=== PATIENT | male | born 1965 | race African-American/Black ===

== ENCOUNTER 2020-04-03 09:55 | Day surgery (SDCO) | payer OTHER ==
[~2020-04-03 09:55] MED LIST: ASPIRIN CHEWABL81 MG PO; ASPIRIN325 MG PO; CEFDINIR300 MG PO; COZAAR 100MG T100 MG PO; COZAAR100 MG PO; DEMADEX20 MG PO; FAMCICLOVIR500 MG PO; GLUCOPHAGE850 MG PO; HYDROCODON-ACE1 EAC4 PO; KETOROLAC TROME10 MG PO; LANTUS **100 UNITS/ SC; LANTUS SOL100 UNIT/1 SC; LISINOPRIL-HCT1 EAC1 PO; MEDROL 4MG DOSEP4 MG PO; METOLAZONE 5MG T5 M1 PO; METOPROLOL SUCC50 MG PO; NEURONTIN300 MG PO; NORCO 5-325 TA1 EACH PO; NORVASC2.5 MG PO; NOVOLOG VI100 UNIT/1 SC; ONDANSETRON HCL4 MG PO; ONDANSETRON ODT4 MG SL; PAROXETINE 20MG20 MG PO; PAXIL10 MG PO; PRAVACHOL20 M1 PO; PREDNISONE 20MG20 MG PO; PROTONIX 40MG T40 MG PO; TRESIBA FL100 UNIT/1 SC; VENTOLIN HFA IN18 GM INH; VIBRAMYCIN100 MG PO; VOLTAREN **OUT50 MG PO; WELLBUTRIN75 MG PO
[2020-04-03 11:02] LABS: BILIRUBIN NEGATIVE (NEGATIVE); BLOOD 2+ Ery/uL (NEGATIVE); CLARITY CLEAR (CLEAR); COLOR YELLOW (YELLOW); GLUCOSE (U) NORMAL (NORMAL); LEUKOCYTES NEGATIVE Leu/uL (NEGATIVE); NITRITE NEGATIVE (NEGATIVE); PROTEIN 2+ mg/dL (NEGATIVE); UROBILINOGEN 0.2 mg/dL (0.2-1.0); pH 5.5 (5.0-9.0)
[2020-04-03 11:06] LABS: BASOPHIL 0.5 % (0-2); EOSINOPHIL 2.7 % (0-5); HCT 40.4 % (42.0-52.0); HGB 13.2 g/dl (13.2-18.0); LYMPHOCYTE 17.6 % (15-48); MCH 28.5 pg (25.0-31.0); MCHC 32.7 g/dL (32.0-36.0); MCV 87.3 fL (78.0-100.0); MONOCYTE 7.4 % (0-12); MPV 9.3 fL (6.0-9.5); NEUTROPHIL 70.6 % (41-80); NRBC 0; PLT 415 K/uL (150-400); RBC 4.63 M/uL (4.70-6.00); RDW 14.5 % (11.5-14.0); WBC 8.6 K/uL (4.0-10.5)
[2020-04-03 11:10] LABS: SQUAMOUS EPITHELIAL CELLS RARE
[2020-04-03 11:16] LABS: INR 1.01 (0.9-1.2); PROTHROMBIN TIME 12.6 SECONDS (11.4-13.6)
[2020-04-03 11:17] LABS: PTT 27.3 SECONDS (22.2-34.7)
[2020-04-03 11:37] LABS: BILIRUBIN - TOTAL 0.8 mg/dL (0.2-1.0); CREATININE 2.77 mg/dL (0.67-1.17); GLOBULIN (CALCULATION) 4.7 g/dL; POTASSIUM 3.6 mmol/L (3.5-5.1); TOTAL PROTEIN 7.7 g/dL (6.4-8.2)
[2020-04-03] MEDS ORDERED: BACTRIM DS TAB1 EACH PO (17:24)
[2020-04-03] MEDS ORDERED: TORSEMIDE20 MG PO (17:25)
[2020-04-03] MEDS ORDERED: ALLOPURINOL300 MG PO (17:27)
[2020-04-03] MEDS ORDERED: LANTUS **100 UNITS/ IM (17:28)
[2020-04-03] MEDS ORDERED: AMLODIPINE BESY10 MG PO (17:29)
[2020-04-03] MEDS ORDERED: COZAAR100 MG PO (17:29)
[2020-04-03] MEDS ORDERED: LOPRESSOR50 MG PO (17:30)
[2020-04-03] MEDS ORDERED: PROTONIX 40MG T40 MG PO (17:30)
[2020-04-03] MEDS ORDERED: NEURONTIN300 MG PO (17:31)
[2020-04-03] MEDS ORDERED: PAXIL20 MG PO (17:31)
[2020-04-04 06:25] LABS: BASOPHIL 0.1 % (0-2); EOSINOPHIL 0 % (0-5); HCT 37.3 % (42.0-52.0); HGB 12.1 g/dl (13.2-18.0); LYMPHOCYTE 10.8 % (15-48); MCH 28.7 pg (25.0-31.0); MCHC 32.4 g/dL (32.0-36.0); MCV 88.4 fL (78.0-100.0); MONOCYTE 3.3 % (0-12); MPV 9.3 fL (6.0-9.5); NEUTROPHIL 85.4 % (41-80); NRBC 0; PLT 388 K/uL (150-400); RBC 4.22 M/uL (4.70-6.00); RDW 14.3 % (11.5-14.0); WBC 6.8 K/uL (4.0-10.5)
[2020-04-04 06:54] LABS: BUN/CREAT RATIO (CALC) 14.3 RATIO; CREATININE 2.51 mg/dL (0.67-1.17); POTASSIUM 3.9 mmol/L (3.5-5.1); URIC ACID 9.5 mg/dL (3.5-7.2)
[2020-04-04] MEDS ORDERED: METOPROLOL SUCC50 MG PO (10:30)
[2020-04-04] MEDS ORDERED: AMLODIPINE BESY10 MG PO (10:30)
[2020-04-04] MEDS ORDERED: COZAAR 100MG T100 MG PO (10:34)
[2020-04-04] MEDS ORDERED: DEMADEX20 MG PO (10:34)
[2020-04-04] MEDS ORDERED: PREDNISONE 20MG20 MG PO (10:35)
[2020-04-04] MEDS ORDERED: COLCHICINE0.6 MG PO (10:35)
[2020-04-04] MEDS ORDERED: TORSEMIDE20 MG PO (10:37)
[2020-04-04] MEDS ORDERED: PERCOCET 5-3251 EACH PO (10:40)
== END 2020-04-04 11:11 | disposition home or self-care (01) ==
LOC: FER 09:55 → FMS 13:05
PROVIDERS: Emergency Medicine; ADMIT Internal Medicine
DX: M10.9 Gout, unspecified (principal); M79.89 Other specified soft tissue disorders; I13.0 Hypertensive heart and chronic kidney disease with heart failure and stage 1 through stage 4 chronic kidney disease, or unspecified chronic kidney disease; E11.22 Type 2 diabetes mellitus with diabetic chronic kidney disease; N18.4 Chronic kidney disease, stage 4 (severe); I50.30 Unspecified diastolic (congestive) heart failure; E11.40 Type 2 diabetes mellitus with diabetic neuropathy, unspecified; K21.9 Gastro-esophageal reflux disease without esophagitis; F41.9 Anxiety disorder, unspecified; Z87.891 Personal history of nicotine dependence; Z79.4 Long term (current) use of insulin; Z79.82 Long term (current) use of aspirin; Z79.899 Other long term (current) drug therapy
CPT/HCPCS: 36415; 71046; 80048; 80053; 81001; 83880; 84443; 84484; 84550; 85025; 85610; 85730; 93005; G0378; J1940; J7512

== ENCOUNTER 2020-05-28 06:14 | Inpatient (IN) | payer OTHER ==
[~2020-05-28 06:14] MED LIST changes: +ALLOPURINOL300 MG PO; +AMLODIPINE BESY10 MG PO; +BACTRIM DS TAB1 EACH PO; +COLCHICINE0.6 MG PO; +LANTUS **100 UNITS/ IM; +LOPRESSOR50 MG PO; +PAXIL20 MG PO; +PERCOCET 5-3251 EACH PO; +TORSEMIDE20 MG PO
[2020-05-28 06:52] LABS: BASOPHIL 0.4 % (0-2); EOSINOPHIL 1.1 % (0-5); HCT 33.8 % (42.0-52.0); HGB 11.3 g/dl (13.2-18.0); LYMPHOCYTE 10.1 % (15-48); MCH 29.6 pg (25.0-31.0); MCHC 33.4 g/dL (32.0-36.0); MCV 88.5 fL (78.0-100.0); MONOCYTE 9.7 % (0-12); MPV 9.6 fL (6.0-9.5); NEUTROPHIL 78.1 % (41-80); NRBC 0; PLT 473 K/uL (150-400); RBC 3.82 M/uL (4.70-6.00); RDW 14.5 % (11.5-14.0); WBC 12.3 K/uL (4.0-10.5)
[2020-05-28 07:08] LABS: LACTIC ACID 2.3 mmol/L (0.4-1.9)
[2020-05-28 07:51] LABS: ALBUMIN 2.2 g/dL (3.4-5.0); ALKALINE PHOSHATASE 168 U/L (46-116); ALT 41 U/L (16-63); AST 31 U/L (15-37); BILIRUBIN - TOTAL 0.8 mg/dL (0.2-1.0); BUN 53 mg/dL (7-18); BUN/CREAT RATIO (CALC) 13.2 RATIO; CHLORIDE 93 mmol/L (98-107); CO2 (BICARBONATE) 26 mmol/L (21-32); GLOBULIN (CALCULATION) 4.3 g/dL; GLUCOSE 217 mg/dL (74-106); POTASSIUM 4.1 mmol/L (3.5-5.1); TOTAL PROTEIN 6.5 g/dL (6.4-8.2); URIC ACID 9.6 mg/dL (3.5-7.2)
[2020-05-28 07:55] LABS: C-REACTIVE PROTEIN > 18.00 mg/dL (<=0.90)
[2020-05-28 09:21] LABS: BILIRUBIN NEGATIVE (NEGATIVE); BLOOD 1+ Ery/uL (NEGATIVE); CLARITY CLEAR (CLEAR); COLOR YELLOW (YELLOW); GLUCOSE (U) TRACE mg/dL (NORMAL); LEUKOCYTES NEGATIVE Leu/uL (NEGATIVE); NITRITE NEGATIVE (NEGATIVE); PROTEIN 2+ mg/dL (NEGATIVE); SPECIFIC GRAVITY 1.025 (1.001-1.030); pH 5.5 (5.0-9.0)
[2020-05-28 09:28] LABS: AMORPHOUS URATES CRYSTALS TRACE; BACTERIA TRACE; URINARY RBC RARE; URINARY WBC RARE
--- NOTE | 2020-05-28 19:09 | NUR ---
182- ASSISTED MD WITH FLUID TAP OF RIGHT KNEE, PT TOLERATED WELL
[2020-05-28 20:12] LABS: CLARITY (FLUID) CLOUDY; COLOR (FLUID) YELLOW
[2020-05-28 20:19] LABS: RBC (FLUID) 5000 RBC/uL; WBC (FLUID) 24870 WBC/uL
[2020-05-29 08:30] LABS: BASOPHIL 0.2 % (0-2); EOSINOPHIL 0.1 % (0-5); HCT 34.4 % (42.0-52.0); HGB 11.7 g/dl (13.2-18.0); LYMPHOCYTE 6.2 % (15-48); MCH 30.1 pg (25.0-31.0); MCV 88.4 fL (78.0-100.0); MONOCYTE 1.4 % (0-12); MPV 9.1 fL (6.0-9.5); NRBC 0; PLT 522 K/uL (150-400); RBC 3.89 M/uL (4.70-6.00); RDW 14.2 % (11.5-14.0); WBC 10.7 K/uL (4.0-10.5)
[2020-05-29 08:33] LABS: NEUTROPHIL 91.6 % (41-80)
[2020-05-29 09:04] LABS: BUN/CREAT RATIO (CALC) 18.3 RATIO; CREATININE 3.55 mg/dL (0.67-1.17); POTASSIUM 4.8 mmol/L (3.5-5.1)
[2020-05-29] MEDS ORDERED: LINEZOLID600 MG/300 IM/IV (11:51)
[2020-05-29] MEDS ORDERED: NEURONTIN300 MG PO (11:51)
--- NOTE | 2020-05-29 15:28 | NUR ---
PT LIVES WITH SPOUSE ; PT TRNASFERING TO SCIENTOLOGIST FOR HIGHER LEVEL OF CARE
== END 2020-05-29 13:20 | disposition other institution (70) | DRG 549 ==
LOC: FER 06:14 → FMS 10:12
PROVIDERS: Emergency Medicine Emergency Medical Services; ADMIT Internal Medicine
PROC: 0S9C3ZX Drainage of Right Knee Joint, Percutaneous Approach, Diagnostic (ICD-10-PCS; principal; 2020-05-28)
PROC: 3E0U33Z Introduction of Anti-inflammatory into Joints, Percutaneous Approach (ICD-10-PCS; 2020-05-28)
PROC: 3E0U3BZ Introduction of Anesthetic Agent into Joints, Percutaneous Approach (ICD-10-PCS; 2020-05-28)
DX: M00.861 Arthritis due to other bacteria, right knee (principal); I13.0 Hypertensive heart and chronic kidney disease with heart failure and stage 1 through stage 4 chronic kidney disease, or unspecified chronic kidney disease; I50.30 Unspecified diastolic (congestive) heart failure; N18.4 Chronic kidney disease, stage 4 (severe); N17.9 Acute kidney failure, unspecified; M25.561 Pain in right knee; M10.9 Gout, unspecified; Z20.822 Contact with and (suspected) exposure to COVID-19; E11.22 Type 2 diabetes mellitus with diabetic chronic kidney disease; K21.9 Gastro-esophageal reflux disease without esophagitis; F41.9 Anxiety disorder, unspecified; E86.0 Dehydration; E11.40 Type 2 diabetes mellitus with diabetic neuropathy, unspecified; Z87.891 Personal history of nicotine dependence; Z79.899 Other long term (current) drug therapy; Z79.82 Long term (current) use of aspirin; Z79.4 Long term (current) use of insulin
CPT/HCPCS: 36415; 71045; 73560; 76870; 80048; 80053; 81001; 83605; 83880; 84145; 84550; 85025; 85379; 86140; 87070; 87205; 89051; 89060; 93971; J1170; J1885; J2020; J2405; J2543; J3301; J7030; J7512; U0002

== ENCOUNTER 2020-08-03 09:35 | Emergency (ER) | payer OTHER ==
[~2020-08-03 09:35] MED LIST changes: +LINEZOLID600 MG/300 IM/IV
[2020-08-03 10:05] LABS: BASOPHIL 0.4 % (0-2); EOSINOPHIL 1.5 % (0-5); HCT 34.1 % (42.0-52.0); HGB 11.5 g/dl (13.2-18.0); MCH 31.9 pg (25.0-31.0); MCHC 33.7 g/dL (32.0-36.0); MCV 94.5 fL (78.0-100.0); MONOCYTE 7.8 % (0-12); MPV 9.8 fL (6.0-9.5); NEUTROPHIL 77.1 % (41-80); NRBC 0; PLT 363 K/uL (150-400); RBC 3.61 M/uL (4.70-6.00); RDW 14.8 % (11.5-14.0); WBC 9.6 K/uL (4.0-10.5)
[2020-08-03 10:10] LABS: INR 1.03 (0.9-1.2); PROTHROMBIN TIME 12.8 SECONDS (11.4-13.6); PTT 29.2 SECONDS (22.2-34.7)
[2020-08-03 10:17] LABS: ALBUMIN 3.1 g/dL (3.4-5.0); BUN/CREAT RATIO (CALC) 15.1 RATIO; CREATININE 2.85 mg/dL (0.67-1.17); GLOBULIN (CALCULATION) 4.2 g/dL; MAGNESIUM 2.6 mg/dL (1.8-2.4); POTASSIUM 4.1 mmol/L (3.5-5.1); TOTAL PROTEIN 7.3 g/dL (6.4-8.2)
[2020-08-03 10:30] LABS: LACTIC ACID 2.1 mmol/L (0.4-1.9)
== END 2020-08-03 12:15 | disposition other institution (70) ==
LOC: FER 09:35
PROVIDERS: Emergency Medicine
DX: I21.4 Non-ST elevation (NSTEMI) myocardial infarction (principal); I13.0 Hypertensive heart and chronic kidney disease with heart failure and stage 1 through stage 4 chronic kidney disease, or unspecified chronic kidney disease; I50.1 Left ventricular failure, unspecified; N18.4 Chronic kidney disease, stage 4 (severe); E11.22 Type 2 diabetes mellitus with diabetic chronic kidney disease; J96.91 Respiratory failure, unspecified with hypoxia; Z20.822 Contact with and (suspected) exposure to COVID-19
CPT/HCPCS: 36415; 36600; 71045; 80053; 82803; 83605; 83735; 83880; 84145; 84484; 85025; 85610; 85730; 93005; 96374; U0002

== ENCOUNTER 2020-09-13 12:22 | Emergency (ER) | payer OTHER ==
[2020-09-13 12:56] LABS: BASOPHIL 0.4 % (0-2); EOSINOPHIL 0.9 % (0-5); HCT 26.5 % (42.0-52.0); HGB 8.8 g/dl (13.2-18.0); LYMPHOCYTE 11.2 % (15-48); MCH 28.3 pg (25.0-31.0); MCHC 33.2 g/dL (32.0-36.0); MCV 85.2 fL (78.0-100.0); MONOCYTE 6.3 % (0-12); MPV 9.1 fL (6.0-9.5); NEUTROPHIL 80.8 % (41-80); NRBC 0; PLT 617 K/uL (150-400); RBC 3.11 M/uL (4.70-6.00); RDW 13.9 % (11.5-14.0)
[2020-09-13 13:02] LABS: INR 1.21 (0.9-1.2); PROTHROMBIN TIME 14.5 SECONDS (11.4-13.6); PTT 33.2 SECONDS (22.2-34.7)
[2020-09-13 13:14] LABS: BILIRUBIN - TOTAL 0.7 mg/dL (0.2-1.0); CREATININE 3.21 mg/dL (0.67-1.17); GLOBULIN (CALCULATION) 4.8 g/dL; POTASSIUM 2.9 mmol/L (3.5-5.1); TOTAL PROTEIN 7.8 g/dL (6.4-8.2)
== END 2020-09-13 23:40 | disposition other institution (70) ==
LOC: FER 12:22
PROVIDERS: Emergency Medicine
DX: I12.0 Hypertensive chronic kidney disease with stage 5 chronic kidney disease or end stage renal disease (principal); E11.22 Type 2 diabetes mellitus with diabetic chronic kidney disease; N17.9 Acute kidney failure, unspecified; N18.6 End stage renal disease; R07.9 Chest pain, unspecified; E87.6 Hypokalemia; E78.5 Hyperlipidemia, unspecified; Z20.822 Contact with and (suspected) exposure to COVID-19
CPT/HCPCS: 36415; 71045; 80053; 84484; 85025; 85610; 85730; 93005; J2270; J2405; J3480; U0002

== ENCOUNTER 2020-10-18 19:11 | Emergency (ER) | payer OTHER ==
[2020-10-18 20:12] LABS: BASOPHIL 0.4 % (0-2); EOSINOPHIL 2.2 % (0-5); HCT 25.7 % (42.0-52.0); HGB 8.2 g/dl (13.2-18.0); LYMPHOCYTE 8.6 % (15-48); MCH 25.7 pg (25.0-31.0); MCHC 31.9 g/dL (32.0-36.0); MCV 80.6 fL (78.0-100.0); MONOCYTE 5.6 % (0-12); MPV 8.8 fL (6.0-9.5); NEUTROPHIL 82.9 % (41-80); NRBC 0; PLT 480 K/uL (150-400); RBC 3.19 M/uL (4.70-6.00); RDW 15.5 % (11.5-14.0); WBC 10.7 K/uL (4.0-10.5)
[2020-10-18 20:35] LABS: LACTIC ACID 1.1 mmol/L (0.4-1.9)
[2020-10-18 20:37] LABS: ALBUMIN 2.9 g/dL (3.4-5.0); BILIRUBIN - TOTAL 0.7 mg/dL (0.2-1.0); C-REACTIVE PROTEIN 6.4 mg/dL (<=0.90); CREATININE 3.12 mg/dL (0.67-1.17); GLOBULIN (CALCULATION) 4.7 g/dL; TOTAL PROTEIN 7.6 g/dL (6.4-8.2); URIC ACID 14.3 mg/dL (3.5-7.2)
[2020-10-18] MEDS ORDERED: NORCO 5-325 TA1 EACH PO (21:36)
[2020-10-18] MEDS ORDERED: PREDNISONE 20MG20 MG PO (21:36)
== END 2020-10-18 23:45 | disposition home or self-care (01) ==
LOC: FER 19:11
PROVIDERS: Emergency Medicine Emergency Medical Services
DX: M70.32 Other bursitis of elbow, left elbow (principal); I12.0 Hypertensive chronic kidney disease with stage 5 chronic kidney disease or end stage renal disease; E10.22 Type 1 diabetes mellitus with diabetic chronic kidney disease; N18.6 End stage renal disease; Z99.2 Dependence on renal dialysis
CPT/HCPCS: 36415; 71045; 80053; 83605; 84145; 84484; 84550; 85025; 86140; 87040; 93005; J1170; J2405; J2920; J3370; J7050

== ENCOUNTER 2020-10-20 12:31 | Emergency (ER) | payer OTHER ==
[2020-10-20 13:13] LABS: BASOPHIL 0.2 % (0-2); EOSINOPHIL 0.2 % (0-5); HCT 27.9 % (42.0-52.0); HGB 8.7 g/dl (13.2-18.0); LYMPHOCYTE 7.6 % (15-48); MCH 25.4 pg (25.0-31.0); MCHC 31.2 g/dL (32.0-36.0); MCV 81.3 fL (78.0-100.0); MONOCYTE 2.8 % (0-12); MPV 9.2 fL (6.0-9.5); NEUTROPHIL 88.8 % (41-80); NRBC 0; PLT 567 K/uL (150-400); RBC 3.43 M/uL (4.70-6.00); RDW 15.3 % (11.5-14.0); WBC 12.4 K/uL (4.0-10.5)
[2020-10-20 13:22] LABS: INR 1.15 (0.9-1.2); PROTHROMBIN TIME 14.1 SECONDS (11.8-13.4); PTT 31.6 SECONDS (24.4-34.7)
[2020-10-20 13:34] LABS: ALBUMIN 3.1 g/dL (3.4-5.0); BILIRUBIN - TOTAL 0.6 mg/dL (0.2-1.0); CREATININE 3.71 mg/dL (0.67-1.17); GLOBULIN (CALCULATION) 4.8 g/dL; POTASSIUM 3.8 mmol/L (3.5-5.1); TOTAL PROTEIN 7.9 g/dL (6.4-8.2)
== END 2020-10-20 19:05 | disposition home or self-care (01) ==
LOC: FER 12:31
PROVIDERS: Emergency Medicine
DX: R07.89 Other chest pain (principal); E87.70 Fluid overload, unspecified; E11.22 Type 2 diabetes mellitus with diabetic chronic kidney disease; N18.6 End stage renal disease; I25.10 Atherosclerotic heart disease of native coronary artery without angina pectoris; I50.9 Heart failure, unspecified
CPT/HCPCS: 36415; 71045; 80053; 84484; 85025; 85610; 85730; 93005; J1940

== ENCOUNTER 2020-11-03 23:12 | Emergency (ER) | payer OTHER ==
[2020-11-04 00:04] LABS: BASOPHIL 0.4 % (0-2); EOSINOPHIL 1.1 % (0-5); HCT 26.2 % (42.0-52.0); HGB 8.1 g/dl (13.2-18.0); LYMPHOCYTE 13.5 % (15-48); MCH 25.3 pg (25.0-31.0); MCHC 30.9 g/dL (32.0-36.0); MCV 81.9 fL (78.0-100.0); MONOCYTE 7.4 % (0-12); NEUTROPHIL 77.2 % (41-80); NRBC 0; PLT 401 K/uL (150-400); RDW 16.9 % (11.5-14.0); WBC 10.7 K/uL (4.0-10.5)
[2020-11-04 00:35] LABS: ALBUMIN 2.9 g/dL (3.4-5.0); BILIRUBIN - TOTAL 0.9 mg/dL (0.2-1.0); BUN/CREAT RATIO (CALC) 19.3 RATIO; CREATININE 3.27 mg/dL (0.67-1.17); GLOBULIN (CALCULATION) 3.7 g/dL; POTASSIUM 3.7 mmol/L (3.5-5.1); TOTAL PROTEIN 6.6 g/dL (6.4-8.2)
[2020-11-04 00:46] LABS: PRO-BNP 2495 pg/mL (<125)
[2020-11-04 00:52] LABS: BILIRUBIN NEGATIVE (NEGATIVE); BLOOD NEGATIVE Ery/uL (NEGATIVE); CLARITY CLEAR (CLEAR); COLOR YELLOW (YELLOW); GLUCOSE (U) NORMAL (NORMAL); LEUKOCYTES NEGATIVE Leu/uL (NEGATIVE); NITRITE NEGATIVE (NEGATIVE); PROTEIN 2+ mg/dL (NEGATIVE); UROBILINOGEN 0.2 mg/dL (0.2-1.0)
[2020-11-04 00:59] LABS: AMORPHOUS URATES CRYSTALS MODERATE; BACTERIA TRACE; URINARY RBC RARE; URINARY WBC RARE
[2020-11-04 01:30] LABS: LACTIC ACID 1.4 mmol/L (0.4-1.9)
[2020-11-04] MEDS ORDERED: METOLAZONE 5MG T5 MG PO (09:54)
== END 2020-11-04 10:36 | disposition home or self-care (01) ==
LOC: FER 23:12
PROVIDERS: Emergency Medicine Emergency Medical Services
DX: E11.22 Type 2 diabetes mellitus with diabetic chronic kidney disease (principal); N18.9 Chronic kidney disease, unspecified; N32.89 Other specified disorders of bladder; I50.9 Heart failure, unspecified; R05 Cough; Z99.2 Dependence on renal dialysis; Z20.822 Contact with and (suspected) exposure to COVID-19; Z90.49 Acquired absence of other specified parts of digestive tract; Z79.899 Other long term (current) drug therapy
CPT/HCPCS: 36415; 71045; 71250; 80053; 81001; 83605; 83880; 84145; 84484; 85025; 86140; 87040; 93005; 94760; J1170; J2405; U0002

== ENCOUNTER 2021-04-24 10:40 | Emergency (ER) | payer OTHER ==
[~2021-04-24 10:40] MED LIST changes: +METOLAZONE 5MG T5 MG PO
[2021-04-24 11:42] LABS: BASOPHIL 0.4 % (0-2); EOSINOPHIL 3.9 % (0-5); HCT 30.6 % (42.0-52.0); HGB 9.6 g/dl (13.2-18.0); LYMPHOCYTE 10.5 % (15-48); MCH 27.1 pg (25.0-31.0); MCHC 31.4 g/dL (32.0-36.0); MCV 86.4 fL (78.0-100.0); MONOCYTE 7.6 % (0-12); NEUTROPHIL 77.2 % (41-80); NRBC 0; PLT 502 K/uL (150-400); RBC 3.54 M/uL (4.70-6.00); RDW 16.1 % (11.5-14.0); WBC 9.6 K/uL (4.0-10.5)
[2021-04-24 11:53] LABS: BUN/CREAT RATIO (CALC) 18.6 RATIO; CREATININE 3.49 mg/dL (0.67-1.17); POTASSIUM 3.5 mmol/L (3.5-5.1)
[2021-04-24 11:54] LABS: ALBUMIN 3.3 g/dL (3.4-5.0); BILIRUBIN - TOTAL 0.3 mg/dL (0.2-1.0); GLOBULIN (CALCULATION) 4.5 g/dL; TOTAL PROTEIN 7.8 g/dL (6.4-8.2)
== END 2021-04-24 14:05 | disposition home or self-care (01) ==
LOC: FER 10:40
PROVIDERS: Emergency Medicine
DX: E11.649 Type 2 diabetes mellitus with hypoglycemia without coma (principal); E11.22 Type 2 diabetes mellitus with diabetic chronic kidney disease; N18.9 Chronic kidney disease, unspecified; Z79.4 Long term (current) use of insulin
CPT/HCPCS: 36415; 70450; 80053; 85025; 93005

== ENCOUNTER → 2021-05-13 | Day surgery (SDC) | payer OTHER ==
[~2021-05-13] VITALS: Ht 175.3 cm; Wt 104.5 kg
[~2021-05-13] MED LIST changes: +COREG 6.25MG6.25 MG PO; +HYDRALAZINE25 MG PO; +LEVEMIR VI100 UNITS/ SC
== END | disposition home or self-care (01) ==
LOC: FAS 08:28
DX: M1A.0211 Idiopathic chronic gout, right elbow, with tophus (tophi) (principal); E11.9 Type 2 diabetes mellitus without complications; I10 Essential (primary) hypertension; E78.5 Hyperlipidemia, unspecified; I25.10 Atherosclerotic heart disease of native coronary artery without angina pectoris; Z87.891 Personal history of nicotine dependence; Z79.4 Long term (current) use of insulin; Z79.82 Long term (current) use of aspirin; Z79.899 Other long term (current) drug therapy
CPT/HCPCS: J1885; J2250; J2405; J2704; J2795; J3010; J7120

== ENCOUNTER 2021-07-23 12:27 | Emergency (ER) | payer OTHER ==
[2021-07-23 14:50] LABS: BASOPHIL 0.5 % (0-2); EOSINOPHIL 5.2 % (0-5); HCT 32.8 % (42.0-52.0); HGB 11.2 g/dl (13.2-18.0); LYMPHOCYTE 12.2 % (15-48); MCH 29.6 pg (25.0-31.0); MCHC 34.1 g/dL (32.0-36.0); MCV 86.8 fL (78.0-100.0); MONOCYTE 7.5 % (0-12); MPV 8.6 fL (6.0-9.5); NEUTROPHIL 74.2 % (41-80); NRBC 0; PLT 396 K/uL (150-400); RBC 3.78 M/uL (4.70-6.00); WBC 8.4 K/uL (4.0-10.5)
[2021-07-23 15:13] LABS: BUN/CREAT RATIO (CALC) 14.4 RATIO; CREATININE 5.29 mg/dL (0.67-1.17); POTASSIUM 3.3 mmol/L (3.5-5.1)
== END 2021-07-23 15:56 | disposition home or self-care (01) ==
LOC: FER 12:27
PROVIDERS: Emergency Medicine
DX: R07.89 Other chest pain (principal); I12.0 Hypertensive chronic kidney disease with stage 5 chronic kidney disease or end stage renal disease; N18.6 End stage renal disease; Z88.2 Allergy status to sulfonamides
CPT/HCPCS: 36415; 71046; 80048; 82553; 84484; 85025; 93005

== ENCOUNTER → 2021-08-11 | Day surgery (SDC) | payer OTHER ==
[~2021-08-11] VITALS: Ht 175.3 cm; Wt 104.5 kg
== END | disposition home or self-care (01) ==
LOC: FAS 10:45
DX: Z12.11 Encounter for screening for malignant neoplasm of colon (principal); D12.7 Benign neoplasm of rectosigmoid junction; K57.30 Diverticulosis of large intestine without perforation or abscess without bleeding; I11.0 Hypertensive heart disease with heart failure; I50.9 Heart failure, unspecified; K21.9 Gastro-esophageal reflux disease without esophagitis; E78.00 Pure hypercholesterolemia, unspecified; E11.9 Type 2 diabetes mellitus without complications; Z87.891 Personal history of nicotine dependence; Z79.899 Other long term (current) drug therapy; Z79.82 Long term (current) use of aspirin; Z79.4 Long term (current) use of insulin
CPT/HCPCS: J2250; J2704; J7120